=== PATIENT | female | born 1970 | race Caucasian/White ===

== ENCOUNTER → 2016-12-28 15:53 | Outpatient (CLI) | payer BC, MEDICAID ==
[2013-08-19 23:27] VITALS: BMI 25.3
[~2016-12-28 15:53] MED LIST: PERCOCET 10/3251 TA1 PO; PERCODAN TABLET1 TAB PO; PREVACID30 MG PO; TENORMIN25 MG PO; VIVELLE-DOT 00.05 MG TD
== END | disposition home or self-care (01) ==
LOC: D.US 13:30
DX: E04.8 Other specified nontoxic goiter (principal)

== ENCOUNTER → 2017-02-09 12:21 | Outpatient (CLI) | payer BC, MEDICAID ==
[2013-08-19 23:27] VITALS: BMI 25.3
== END | disposition home or self-care (01) ==
LOC: D.US 01-26 13:00
DX: E04.1 Nontoxic single thyroid nodule (principal)

== ENCOUNTER → 2018-02-26 23:56 | Outpatient (CLI) | payer BC ==
[2013-08-19 23:27] VITALS: BMI 25.3
== END | disposition home or self-care (01) ==
LOC: D.MAMMO 11:15
DX: Z12.31 Encounter for screening mammogram for malignant neoplasm of breast (principal)

== ENCOUNTER → 2018-02-27 14:42 | Outpatient (CLI) | payer BC ==
[2013-08-19 23:27] VITALS: BMI 25.3
== END | disposition home or self-care (01) ==
LOC: D.US 10:30
DX: E04.1 Nontoxic single thyroid nodule (principal)

== ENCOUNTER → 2019-02-06 10:44 | Outpatient (CLI) | payer OTHER, MEDICAID ==
[2013-08-19 23:27] VITALS: BMI 25.3
== END | disposition home or self-care (01) ==
LOC: D.HCCARDIO 10:44
PROVIDERS: ATTEND Internal Medicine Cardiovascular Disease
DX: R07.9 Chest pain, unspecified (principal)

== ENCOUNTER 2019-02-12 09:18 | Outpatient (CLI) | payer MEDICAID ==
--- NOTE | ~2019-02-12 | HEMODYNAMI ---
PATIENT:JOSIANE ROSS MEDICAL RECORD: [id number] : 68 LOCATION:[facility] ADMISSION DATE: 02/12/19 Generatedon:02/12/201911:03 Patient name: JOSIANE ROSS Patient #: [id number] SSN: : 1970 Date of study: 02/12/2019 Page: Of Hemodynamic Procedure Report Patient Data Patient Demographics Procedure consent was obtained First Name: JOSIANE Gender: Female Last Name: CODY : 1970 Middle Initial: SIMA Age: 48 year(s) Patient #: [id number] Race: Unknown Additional ID: [id number] Contact details [address]: [address] [place] [address] State: [place] City: [place] Zip code: [address] Admission Admission Data Admission Date: 02/12/2019 Admission Time: 9:18 Admit Source: Other Height (in.): 57.87 BSA: 1.64 (m2) Height (cm.): 147 BMI: 32.86 (kg/m2) Weight (lbs.): 156.53 Weight (kg.): 71 Procedure Procedure Types Cath Procedure Diagnostic Procedure LHC LHC w/Coronaries Procedure Description Procedure Date Procedure Date: 02/12/2019 Procedure Start Time: 10:54 Procedure End Time: 11:00 Procedure Staff Name Function Alexander Joshi MD Performing Physician Kathi Amaro RT Monitor Cabrera Gooden RN Nurse Arnie Bosch RT Scrub Procedure Data Cath Procedure Fluoroscopy Diagnostic fluoroscopy Total fluoroscopy Time: 1 time: 1 min min Diagnostic fluoroscopy Total fluoroscopy dose: 308 dose: 308 mGy mGy Contrast Material Contrast Material Type Amount (ml) Isovue 370 53 Entry Location Entry Primary Successful Side Size Upsize Upsize Entry Closure Succes sful Closure Location (Fr) 1 (Fr) 2 (Fr) Remarks Device Remarks Femoral Right 5 Fr Exoseal artery Estimated blood loss: 5 ml Diagnostic catheters Device Type Used For End Catheter Placement MULTIPACK Pigtail 5 Fr LV Angiography catheter MULTIPACK JL 4.0 5Fr Left Coronary catheter Angiography MULTIPACK 3DRC 5Fr Right Coronary catheter Angiography Procedure Complications No complications Procedure Medications Medication Administration Route Dosage Oxygen etCO2 Nasal cannula 2 l/min Lidocaine 2% added to field 20 Heparin Flush Bag added to field 2 bags (1000units/500ml NS) 0.9% NaCl I.V. 100 ml/hr Versed I.V. 2 mg Fentanyl I.V. 50 mcg Versed I.V. 2 mg Fentanyl I.V. 50 mcg Hemodynamics Rest BSA: 1.64 (m2) O2 Consumption: Estimated: 161.62 (ml/min) O2 Consumption indexed : Estimated:98.55 (ml/min/m) Heart Rate: 71 (bpm) Pressure Samples Time Site Value (mmHg) Purpose Heart Use Rate(bpm) 10:56 LV 81/5,26 Snapshot 59 Snapshots Pre Cath Intra NCS Post Cath Vital Signs Time Heart Resp SPO2 etCO2 NIBP (mmHg) Rhythm Pain Sedation Rate (ipm) (%) (mmHg) Status Level (bpm) 10:36:28 71 10 100 37.8 145/84(124) NSR 0 (11) 10(A) , No pain 10:40:40 64 35 99 14.8 131/81(101) NSR 0 (11) 10(A) , No pain 10:44:51 62 14 98 23 114/78(94) NSR 0 (11) 10(A) , No pain 10:49:01 60 12 97 4.4 107/68(83) NSR 0 (11) 10(A) , No pain 10:53:09 56 19 96 8.1 98/65(79) NSR 0 (11) 10(A) , No pain 10:58:04 57 23 96 32.7 107/65(90) NSR 0 (11) 9(A) , No pain 11:02:49 65 19 97 33.4 125/72(102) NSR 0 (11) 10(A) , No pain Medications Time Medication Route Dose Verified Delivered Reason Notes Eff ectiveness by by 10:37:03 Oxygen etCO2 2 Alexander Cabrera used for Nasal l/min Madelyn Gooden hand shoe cutter cannula 10:37:11 Lidocaine 2% added 20ml Alexander Munoz for local to vial Madelyn Joshi MD anesthetic field 10:37:18 Heparin Flush added 2 Alexander Alexander used for Bag to bags Madelyn Joshi MD procedure (1000units/500ml field NS) 10:37:26 0.9% NaCl I.V. 100 Alexander Rees Per ml/hr Madelyn Gooden RN physician 10:53:15 Versed I.V. 2 mg Alexander Rees for Madelyn Gooden RN sedation 10:53:21 Fentanyl I.V. 50 Alexander Rees for mcg Madelyn Gooden RN sedation 10:56:15 Versed I.V. 2 mg Alexander Rees for Madelyn Gooden RN sedation 10:56:19 Fentanyl I.V. 50 Alexander Rees for mcg Madelyn Gooden RN sedation Procedure Log Time Note 10:22:39 Admit Source: Other 10:22:57 Diagnostic Cath status Elective 10:23:03 Cabrera Gooden RN sent for patient. Start room use. 10:23:05 Time tracking: Regular hours (M-F 7:00 - 5:00) 10:23:09 Plan of Care:Hemodynamics will remain stable., Cardiac rhythm will remain stable., Comfort level will be maintained., Respiratory function will remain adequate., Patient/ family verbilizes understanding of procedure., Procedure tolerated without complication., Recovers from procedure without complications.. 10:23:15 Patient received from Pre/Post Procedure Room to CCL 2 Alert and oriented. Tansferred to table in Supine position. 10:23:20 Warm blankets applied, and sharla hugger turned on for patient comfort. 10:23:20 Correct patient and procedure confirmed by team. 10:23:22 Signed procedure consent form obtained from patient. 10:23:23 ECG and BP/O2 sat monitors applied to patient. 10:35:14 Vital chart was started 10:35:44 Baseline sample Acquired. 10:35:48 Rhythm: sinus rhythm 10:35:50 Full Disclosure recording started 10:35:54 H&P Date Dictated: 02/12/2019 Within 30 days and on chart., H&P Addendum completed by physician on day of procedure. (MUST COMPLETE FOR ALL OUTPATIENTS). 10:35:56 Pre-procedure instructions explained to patient. 10:35:56 Pre-op teaching completed and patient verbalized understanding. 10:35:58 Family in waiting room. 10:36:05 Patient NPO since Midnight. 10:36:07 Is the patient allergic to Iodine/contrast media? No. 10:36:08 Was the patient premedicated? No 10:36:09 Is patient on blood thinner?No 10:36:10 Patient diabetic? No. 10:36:13 Previous problem with sedation/anesthesia? No ? 10:36:15 Snore? Yes 10:36:15 Sleep apnea? No 10:36:16 Deviated septum? No 10:36:17 Opens mouth fully? Yes 10:36:18 Sticks out tongue? Yes 10:36:23 Airway obstruction? Yes asthma 10:36:26 Dentures? No ? 10:37:03 Oxygen 2 l/min etCO2 Nasal cannula was administered by Cabrera Gooden RN; used for procedure; 10:37:11 Lidocaine 2% 20ml vial added to field was administered by Alexander Joshi MD; for local anesthetic; 10:37:18 Heparin Flush Bag (1000units/500ml NS) 2 bags added to field was administered by Alexander Joshi MD; used for procedure; 10:37:26 0.9% NaCl 100 ml/hr I.V. was administered by Cabrera Gooden RN; Per physician; 10:38:10 Pre procedure: right dorsailis pedis pulse 2+ Normal; easily identifiable; not easily obliterated 10:38:12 Pre procedure: left dorsailis pedis pulse 2+ Normal; easily identifiable; not easily obliterated 10:38:13 Patient pain scale 0/10 ?. 10:38:22 IV patent on arrival in left antecubital with 0.9% NaCl at [facility]. 10:38:33 Lab results completed and on chart. 10:38:36 Right groin area was prepped with chlora-prep and draped in sterile fashion 10:38:37 Alarms reviewed by R. N. 10:38:38 Sharps counted by scrub and verified by R.N. 10:41:11 Use device set Femoral Dx 10:41:12 ACIST Syringe (11478) opened to sterile field. 10:41:12 Bag Decanter (2002) opened to sterile field. 10:41:12 Medline Cath Pack ([id number]) opened to sterile field. 10:41:13 DIAGNOSTIC WIRE .035 260cm J wire (461521) opened to sterile field. 10:41:17 ACIST Hand Control (94477) opened to sterile field. 10:41:18 ACIST Manifold (95905) opened to sterile field. 10:41:18 DIAGNOSTIC Multipack 5Fr catheter set (AQ7445) opened to sterile field. 10:41:19 Tegaderm 4 x 4 (1626W) opened to sterile field. 10:41:20 SHEATH 5FR Byron (VGP138) opened to sterile field. 10:42:48 Patient Weight : 156.53 lbs 10:42:52 Patient Height : 57.87 inches 10:53:07 Physician arrived 10:53:08 --------ALL STOP TIME OUT------ 10:53:08 Final Timeout: patient, procedure, and site verified with staff and physician. All members of the team are in agreement. 10:53:10 Right groin site verified by team. 10:53:13 Maximum allowable Isovue 300 dose 300ml. Physician notified. (300ml for normal creatinines. For patients with creatinine of 1.7 or higher multiply weight(kg) x 5 divided by creatinine.) 10:53:15 Versed 2 mg I.V. was administered by Cabrera Gooden RN; for sedation; 10:53:17 Fire Safety Assessment: A--An alcohol-based skin anteseptic being used preoperatively., C--Open oxygen or nitrous oxide is being used., D--An ESU, laser, or fiber-optic light is being used. 10:53:20 Physical assessment completed. ASA score P 2 - A patient with mild systemic disease as per Alexander Joshi MD. 10:53:21 Fentanyl 50 mcg I.V. was administered by Cabrera Gooden RN; for sedation; 10:53:22 Sedation plan: IV Moderate Sedation Medication:Versed, Fentanyl 10:54:19 Procedure started. 10:54:43 Local anesthetic to right femoral artery with Lidocaine 2% by Alexander oJshi MD.INITIAL ACCESS ONLY 10:54:54 A 5 Fr sheath was inserted into the Right Femoral artery 10:56:07 A MULTIPACK Pigtail 5 Fr catheter was advanced over the wire and used for LV Angiography. 10:56:15 Versed 2 mg I.V. was administered by Cabrera Gooden RN; for sedation; 10:56:19 Fentanyl 50 mcg I.V. was administered by Cabrera Gooden RN; for sedation; 10:57:04 LV hemodynamics recorded. 10:57:06 LV gram done using CORREA 10:57:11 EF : 50 % 10:57:24 Catheter removed. 10:57:30 A MULTIPACK JL 4.0 5Fr catheter was advanced over the wire and used for Left Coronary Angiography. 10:57:39 LCA angiography performed. 10:57:42 Injector settings: Ml/sec: 3, Volume: 6, 10:58:33 Catheter removed. 10:58:39 A MULTIPACK 3DRC 5Fr catheter was advanced over the wire and used for Right Coronary Angiography. 10:58:59 RCA angiography performed. 10:59:02 Injector settings: Ml/sec: 3, Volume: 6, 10:59:10 Catheter removed. 10:59:14 EXOSEAL 5Fr (EX500) opened to sterile field. 10:59:25 Sheath removed intact; hemostasis achieved with Exoseal to the Right Femoral artery. 10:59:40 Procedure ended.(Physican Out) 10:59:58 Fluoroscopy time 01.00 minutes. 11:00:10 Fluoroscopy dose: 308 mGy 11:00:10 Flurop Dose total: 308 11:00:14 Contrast amount:Isovue 370 53ml. 11:00:15 Sharps counted by scrub and verified by R.N. 11:00:17 Insertion/operative site no bleeding no hematoma. 11:00:21 Post-op/insertion site Right Femoral artery dressed using a 4 x 4 and Tegaderm. 11:00:25 Post procedure rhythm: unchanged. 11:00:28 Estimated blood loss: 5 ml 11:00:29 Post procedure instruction explained to patient.Patient verbalizes understanding. 11:00:30 Patient needs reinforcement of post procedure teaching. 11:00:40 Procedure and supply charges have been captured, reviewed, submitted and are correct. 11:00:46 Procedure Complication : No complications 11:00:48 Vital chart was stopped 11:00:48 See physician's report for complete and final results. 11:00:51 Report given to Pre/Post Procedure Room. 11:00:54 Patient transfered to Pre/Post Procedure Room with Stretcher. 11:00:56 Procedure ended. 11:00:56 Full Disclosure recording stopped 11:01:08 End room use (Document Last) Device Usage Item Name Manufacture Quantity Catalog Hospital Part Current Minimal L ot# / Number Charge Number Stock Stock Serial# Code ACIST Acist 1 51048 058612 901333 682932 20 Syringe Medical (33570) Systems Inc Bag Microtek 1 2001S 774259 17253 796524 5 Decanter Medical Inc. () Medline Medline 1 [id number] 322161 77840 988948 5 Cath Pack ([id number]) DIAGNOSTIC [facility] 1 276370 892307 621095 888407 30 WIRE .035 260cm J wire (286430) ACIST Hand Acist 1 57048 380309 574772 597298 5 Control Medical (84586) Systems Inc ACIST Acist 1 37725 853228 686262 399591 5 Manifold Medical (41431) Systems Inc DIAGNOSTIC Cardinal 1 HS3246 644216 48880 540947 30 Multipack Health 5Fr catheter set (MG7265) Tegaderm 4 3M 1 1626W 069776 837015 276663 5 x 4 (1626W) SHEATH 5FR Terumo 1 TNR591 483978 104832 216240 5 Byron (MVV074) MULTIPACK Cardinal 1 547297 5 Pigtail 5 Health Fr catheter MULTIPACK Cardinal 1 498718 5 JL 4.0 5Fr Health catheter MULTIPACK Cardinal 1 023333 5 3DRC 5Fr Health catheter EXOSEAL 5Fr Cardinal 1 EX500 931864 739372 029049 10 (EX500) Health Signature Audit Ramer Stage Time Signature Unsigned Intra-Procedure 02/12/2019 Kathi Amaro 11:03:46 AM RT(R) Signatures Monitor : Kathi Amaro RT Signature : Date : Time : [facility] [address] [place] [address]
[2019-02-12] MEDS ORDERED: PEPCID AC20 MG PO (09:35)
[2019-02-12] MEDS ORDERED: BISOPROLOL-HCT1 EAC1 PO (09:37)
[2019-02-12] MEDS ORDERED: GABAPENTIN100 MG PO (09:38)
[2019-02-12 09:45] VITALS: BP 168/85; BMI 32.4
[2019-02-12 09:55] LABS: BASOPHILS 0.1 % (0-2); EOSINOPHILS 3.3 % (0-7); HEMATOCRIT 44.2 % (36.0-48.0); HEMOGLOBIN 14.9 g/dL (12-16); IMMATURE GRANULOCYTES 0.6 % (0-5); LYMPHOCYTES 25.9 % (15-50); MCH 27.4 pg (26.0-34.0); MCHC 33.7 g/dL (31.0-37.0); MCV 81.4 fL (80.0-100.0); MEAN PLATELET VOLUME 10.8 fL (7.4-10.4); MONOCYTES 7.8 % (2-11); NEUTROPHILS 62.3 % (40-80); RBC 5.43 10x6/uL (4.00-5.40); RDW 13.2 % (11.5-14.5); WBC 7.2 10x3/uL (4.8-10.8)
[2019-02-12 10:07] LABS: CALC OSMOLALITY 280 mosm/kg (275-300); CALCIUM 9.6 mg/dL (8.5-10.1); CARBON DIOXIDE 28.1 mmol/L (21.0-32.0); CHLORIDE - SERUM 104 mmol/L (98-107); CREATININE - SERUM 0.8 mg/dL (0.6-1.3); GLUCOSE 94 mg/dL (74-106); PLATELET COUNT 245 10x3/uL (130-400); SODIUM 140 mmol/L (136-145); UREA NITROGEN 17 mg/dL (7-18); eGFR NON AFRICAN AMERICAN 81 mL/min (90-120)
[2019-02-12 10:09] LABS: POTASSIUM - SERUM 4.3 mmol/L (3.5-5.1)
--- NOTE | 2019-02-12 11:25 | NUR ---
2L NC, NO RESP DISTRESS. RIGHT GROIN 5F EXOSEAL CDI, NO BLEEDING OR HEMATOMA NOTED. NO C/O PAIN OR NAUSEA. VSS. FAMILY AT BEDSIDE, CALL LIGHT WITHIN REACH.
--- NOTE | 2019-02-12 11:44 | NUR ---
TEACY AT BEDSIDE PERFORMING ECHO.
--- NOTE | 2019-02-12 12:10 | NUR ---
HOB ELEVATED 30 DEGREES. RIGHT GROIN 5F EXOSEAL CDI, NO BLEEDING OR HEMATOMA NOTED. SIPPING ON DRINK AND EATING SANDWICH WITH NO C/O NAUSEA. VSS. WILL CONTINUE TO MONITOR CLOSELY.
--- NOTE | 2019-02-12 12:45 | NUR ---
LEFT PIV D/C'D WITH CATHETER INTACT, BAND AID TO SITE. RIGHT GROIN 5F EXOSEAL CDI, NO BLEEDING NOTED. UP TO BEDSIDE TO GET DRESSED. AMBULATED TO RESTROOM.
--- NOTE | 2019-02-12 12:56 | NUR ---
DISCHARGE INSTRUCTIONS GIVEN, VERBALIZED UNDERSTANDING.
--- NOTE | 2019-02-12 13:10 | NUR ---
TAKEN OUT VIA WHEELCHAIR BY CATH ANIMAL CARE ASSISTANT. LEFT FACILITY WITH FAMILY AND ALL PERSONAL BELONGINGS.
--- NOTE | 2019-02-22 11:27 | OP ---
PATIENT NAME: JOSIANE ROSS MEDICAL RECORD: [id number] :68 LOCATION:[facility] ADMISSION DATE: SURGEON: DUKE VICENTE MD DATE OF OPERATION: 02/12/2019 DATE OF SERVICE: 02/12/2019 PROCEDURES: 1. Left heart catheterization. 2. Selective coronary angiography. 3. Left ventriculogram. INDICATION: Chest pain compatible with angina, abnormal nuclear stress test, abnormal ECG - frequent PVCs. PROCEDURE IN DETAIL: After informed consent was obtained and after a detailed description of the risks, benefits as well as alternative therapies, the patient elected to proceed with angiogram and heart catheterization. The right radial artery was cannulated via modified Seldinger technique with placement of 6-Guinean sheath. All catheters exchanged through this sheath. FINDINGS: Left ventriculogram was performed in standard 30-degree CORREA view, reveals global hypokinesis, ejection fraction of 40%. SELECTIVE CORONARY ANGIOGRAPHY: Left main, left anterior descending, left circumflex, and right coronary artery are all smooth-walled vessels with no angiographic evidence of coronary artery disease. OVERALL IMPRESSION: 1. No angiographic evidence of coronary artery disease. 2. Mildly depressed ejection fraction at 40%. There is a disparity from the nuclear stress test which showed ejection fraction in the 60% range. We will get an echocardiogram to verify a more accurate ejection fraction, but at this point no other cardiac workup or treatment is necessary. TRANSINT:[id number] Voice Confirmation ID: [id number] DOCUMENT ID: [id number] DUKE VICENTE MD at 1127 CC: [id number] DICTATION DATE: 02/12/19 1104 THREAD CHECKER: 02/12/19 1159 DEP CLI 02/12/[address] [id number]
--- NOTE | 2019-02-22 11:27 | EC ---
PATIENT:JOSIANE ROSS DATE OF SERVICE: 02/12/19 SEX: F MEDICAL RECORD: [id number] DATE OF : 68 LOCATION:[facility] AGE OF PATIENT: 48 ADMISSION DATE: 02/12/19 REFERRING PHYSICIAN: INTERPRETING PHYSICIAN: DUKE JOSHI MD ECHOCARDIOGRAM REPORT ECHO CHARGES 4 ECHO COMPLETE Date: 02/12/19 CLINICAL DIAGNOSIS: PVC'S ECHOCARDIOGRAPHIC MEASUREMENTS (adult normal given) AC root (d.<3.7cm) 2.8 cm LV Septum d (<1.2 cm> 1.2 cm Valve Excursion 1.7 cm LV Septum (systole) 1.7 cm Left Atria (s.<4.0cm> 3.1 cm LVPW d(<1.2cm) 1.1 cm RV (d.<2.3cm) 2.7 cm LVPW (sytole) 1.7 cm LV diastole(<5.6CM) 4.0 cm MV E-F(>70mm/sec) cm LV systole 2.1 cm LVOT Diameter 1.8 cm MV exc.(>10mm) cm Est.ejection fraction (50-75%) % DOPPLER: LVIT cm/sec A 48.0 cm/sec E 67.0 cm/sec LA cm/sec RVSP 39.0 mmHg LVOT 68.0 cm/sec AOP1/2T m/s Asc. Ao 102 cm/sec RVOT 42.0 cm/sec RA cm/sec PA 63.0 cm/sec AV Gradient Peak 4.1 mmHg AV Mean 1.9 mmHg AV Area 1.6 cm MV Gradient Peak 2.8 mmHg MV Mean 0.73 mmHg MV Area cm COMMENTS: Noise Tester: Jenifer BUTTERFIELDOE Senior Php Developer: 1 Dr. Joshi TAPE# PACS Pericardial Effusion N DATE OF SERVICE: 02/12/2019 PROCEDURE: Echocardiogram. FINDINGS: 1. Left ventricular chamber size is within normal limits. Left ventricular systolic function is preserved at 55% to 60%. Left ventricular hypertrophy is present, concentric with no evidence of outflow tract hypertrophy. 2. Left atrium, right atrium and right ventricular chamber sizes are within normal limits. ECHOCARDIOGRAM REPORT [id number] JOSIANE ROSS 3. Valvular structures have normal structure and motion. 4. Doppler interrogation reveals mild mitral regurgitation, moderate tricuspid regurgitation, no other valvular insufficiency or stenosis. Pulmonary systolic pressure is normal estimated at 29 mmHg. 5. No evidence of pericardial effusion or left ventricular thrombus. TRANSINT:[id number] Voice Confirmation ID: [id number] DOCUMENT ID: [id number] DUKE JOSHI MD at 1127 CC: [id number] DICTATION DATE: 02/13/19 1013 HEAD OF VISUAL MERCHANDISING: 02/13/19 1100 DEP CLI 02/12/19 [place] [id number] [place] [id number]
== END 2019-02-12 13:10 | disposition home or self-care (01) ==
LOC: D.CATH 09:18
PROVIDERS: ATTEND Internal Medicine Interventional Cardiology
DX: R07.9 Chest pain, unspecified (principal); R94.31 Abnormal electrocardiogram [ECG] [EKG]; I49.3 Ventricular premature depolarization; Z01.812 Encounter for preprocedural laboratory examination

== ENCOUNTER 2020-03-09 19:00 | Outpatient (CLI) | payer SELFPAY ==
[~2020-03-09 19:00] MED LIST changes: +BISOPROLOL-HCT1 EAC1 PO; +GABAPENTIN100 MG PO; +PEPCID AC20 MG PO
== END 2020-03-09 23:59 | disposition home or self-care (01) ==
LOC: D.MAMMO 19:00
PROVIDERS: ATTEND Family Medicine
DX: Z12.31 Encounter for screening mammogram for malignant neoplasm of breast (principal)